=== PATIENT | male | born 1960 | race Caucasian/White ===

== ENCOUNTER 2018-06-23 14:32 | Outpatient (CLI) | payer OTHER | END 2018-06-23 14:33 | disposition home or self-care (01) | LOC: SC 14:32 | PROVIDERS: ATTEND Internal Medicine Pulmonary Disease | DX: G47.33 Obstructive sleep apnea (adult) (pediatric) (principal); E66.9 Obesity, unspecified; Z68.33 Body mass index [BMI] 33.0-33.9, adult | CPT/HCPCS: 99203; 99212 ==

== ENCOUNTER 2018-07-11 20:34 | Outpatient (CLI) | payer OTHER | END 2018-07-11 20:35 | disposition home or self-care (01) | LOC: SC 20:34 | PROVIDERS: ATTEND Internal Medicine Pulmonary Disease | DX: G47.33 Obstructive sleep apnea (adult) (pediatric) (principal) | CPT/HCPCS: 95811 ==

== ENCOUNTER 2018-07-23 13:16 | Outpatient (CLI) | payer OTHER | END 2018-07-23 13:17 | disposition home or self-care (01) | LOC: SC 13:16 | PROVIDERS: ATTEND Nurse Practitioner Family | DX: G47.33 Obstructive sleep apnea (adult) (pediatric) (principal) | CPT/HCPCS: 99212; 99214 ==

== ENCOUNTER 2018-08-07 17:48 | Outpatient (CLI) | payer OTHER ==
--- NOTE | 2018-08-08 12:29 | Ultrasound Report ---
Reason: ENCOUNTER FOR SCREENIG FOR CARDIOVASC,PAIN IN LEFT Procedure Date: 08/07/2018 Accession Number: [id number] / [id number] Procedure: US - Aorta Screening CPT Code: FULL RESULT: EXAM: AORTIC DOPPLER ULTRASOUND EXAM DATE: 08/07/2018 06:38 PM. CLINICAL HISTORY: Encounter for screening for cardiovascular, pain in left. COMPARISON: None. TECHNIQUE: Real-time sonographic imaging of retroperitoneal vascular structures, including color-flow, Doppler flow and spectral analysis was performed by the human resource consultant. Multiple education courses sales representative static images were saved for review. FINDINGS: Aorta: The abdominal aorta was adequately visualized. No evidence for abdominal aortic aneurysm. Aorta: Proxima: Sagittal AP 2.1 cm. Mid: Transverse 2.0 x 2.2 cm. Distal: Transverse 1.9 x 1.9 cm. Caliber: WNL: Yes. Plaque visualized: No. Iliacs: Right Iliac: Transverse 1.0 x 1.1 cm. Left Iliac: Transverse 1.1 x 1.1 cm. Iliac Vessels: The visualized proximal common iliac arteries are normal in caliber. Other: None. IMPRESSION: No aortic aneurysm. RAD[facility]
--- NOTE | 2018-08-10 08:44 | XRAY Report ---
Reason: ENCOUNTER FOR SCREENIG FOR CARDIOVASC,PAIN IN LEFT Procedure Date: 08/07/2018 Accession Number: [id number] / [id number] Procedure: XR - Hips 2V BILAT CPT Code: FULL RESULT: EXAM: BILATERAL HIP RADIOGRAPHY EXAM DATE: 08/07/2018 06:48 PM. CLINICAL HISTORY: ENCOUNTER FOR SCREENING FOR CARDIOVASC,PAIN IN LEFT. COMPARISON: None. TECHNIQUE: 2 views each. FINDINGS: Bones: Normal. No fractures or bone lesion. Right Hip: Mild joint space narrowing subchondral sclerosis Left Hip: Osteophyte femoral head. Mild to moderate joint space narrowing with subchondral sclerosis. Soft Tissues: Normal. No soft tissue swelling. IMPRESSION: Left greater than right DJD RADIA
== END 2018-08-07 17:49 | disposition home or self-care (01) ==
LOC: DI 17:48
PROVIDERS: ATTEND Registered Nurse
DX: M16.0 Bilateral primary osteoarthritis of hip (principal); Z13.6 Encounter for screening for cardiovascular disorders
CPT/HCPCS: 73521; 76706

== ENCOUNTER 2018-09-16 15:02 | Outpatient (CLI) | payer OTHER | END 2018-09-16 15:03 | disposition home or self-care (01) | LOC: SC 15:02 | PROVIDERS: ATTEND Nurse Practitioner Family | DX: G47.33 Obstructive sleep apnea (adult) (pediatric) (principal) | CPT/HCPCS: 99212; 99214 ==

== ENCOUNTER 2021-05-16 09:43 | Outpatient (CLI) | payer OTHER ==
--- NOTE | 2021-05-16 16:10 | XRAY Report ---
PROCEDURE: Ribs w/PA Chest LT INDICATIONS: RIB PAIN TECHNIQUE: 3 views of the left ribs were acquired, along with a single view chest. COMPARISON: None FINDINGS: Surgical changes and devices: None. Bones and chest wall: Nondisplaced fractures of the left 10th and 11th ribs. No suspicious bony lesio ns. Overlying soft tissues appear unremarkable. Lungs and pleura: No pleural effusions or pneumothorax. Lungs appear clear. Mediastinum: Mediastinal contours appear normal. Heart size is normal. IMPRESSION: 1. Left 10th and 11th rib fractures. 2. No pneumothorax or other acute pulmonary abnormality. Reviewed by: Stanley Cheung on 05/16/2021 4:09 PM PST Approved by: Stanley Cheung on 05/16/2021 4:09 PM [facility] Station ID: [id number]
== END 2021-05-16 09:44 | disposition home or self-care (01) ==
LOC: DI.S 09:43
PROVIDERS: ATTEND Physician Assistant
DX: S22.42XA Multiple fractures of ribs, left side, initial encounter for closed fracture (principal)

== ENCOUNTER 2021-06-19 14:42 | Outpatient (CLI) | payer OTHER ==
--- NOTE | 2021-06-19 17:22 | XRAY Report ---
PROCEDURE: Cervical Spine 4 View INDICATIONS: NECK PAIN TECHNIQUE: 4 view(s) of the cervical spine were acquired. COMPARISON: None. FINDINGS: Bones: No fractures or dislocations to the T1 level. There is 5 mm of C3 on C4 retrolisthesis. The l ateral masses of C1 appear intact on the odontoid view. No suspicious bony lesions. Severe C3-C4, C 4 and C5 to C5-C6, C6-7 C7 and C7-T1 degenerative disc disease. Mild facet hypertrophy noted througho ut the cervical spine. Moderate bilateral C3 3-C4, C4-C5 and C5-C6 uncovertebral hypertrophy. Soft tissues: No prevertebral soft tissue swelling. IMPRESSION: 1. Multilevel degenerative disc disease. 2. Multilevel facet arthropathy. 3. No fracture. No acute osseous lesion. If there is continued clinical concern for pathology, then M RI should be considered for further evaluation. Reviewed by: Maria Del Rosario Valdivia MD, PhD on 06/19/2021 5:20 PM PDT Approved by: Maria Del Rosario Valdivia MD, PhD on 06/19/2021 5:20 PM PDT Station ID: [id number]
--- NOTE | 2021-06-19 17:24 | XRAY Report ---
PROCEDURE: Thoracic Spine 2 View INDICATIONS: NECK PAIN TECHNIQUE: 2 views of the thoracic spine were acquired. COMPARISON: None. FINDINGS: Bones: Upper thoracic spine is poorly visualized in the lateral view. No fractures or dislocations. No suspicious bony lesions. 12 pairs of ribs are noted, and appear intact where visualized. Moderat e degenerative changes noted throughout the thoracic spine. Mild facet hypertrophy noted throughout t he thoracic spine. Soft tissues: No paravertebral stripe thickening. IMPRESSION: 1. Multilevel degenerative disc disease. 2. Multilevel facet arthropathy. 3. No fracture. No acute osseous lesion. If there is continued clinical concern for pathology, then M RI should be considered for further evaluation. Reviewed by: Maria Del Rosario Valdivia MD, PhD on 06/19/2021 5:22 PM PDT Approved by: Maria Del Rosario Valdivia MD, PhD on 06/19/2021 5:22 PM PDT Station ID: [id number]
--- NOTE | 2021-06-19 19:47 | XRAY Report ---
PROCEDURE: Shoulder 3 View BILAT INDICATIONS: BILATERAL SHOULDER JOINT PAIN TECHNIQUE: 3 views of each shoulder were acquired. COMPARISON: None. FINDINGS: Bones: No acute fractures or dislocations. No suspicious bony lesions. Visualized ribs appear inta ct. Moderate degenerative changes are seen in the acromioclavicular joints bilaterally. Mild bilatera l glenohumeral osteoarthrosis is also seen. Soft tissues: No suspicious soft tissue calcifications. IMPRESSION: Moderate bilateral acromioclavicular osteoarthrosis and mild bilateral glenohumeral oste oarthrosis. No acute osseous abnormality. If symptoms persist or there is continued clinical concern, further evaluation with MRI or CT may be helpful. Reviewed by: Luis M Barrios MD on 06/19/2021 7:45 PM PDT Approved by: Luis M Barrios MD on 06/19/2021 7:45 PM PDT Station ID: [id number]
== END 2021-06-19 14:43 | disposition home or self-care (01) ==
LOC: DI.S 14:42
PROVIDERS: ATTEND Nurse Practitioner Family
DX: M50.31 Other cervical disc degeneration, high cervical region (principal); M47.812 Spondylosis without myelopathy or radiculopathy, cervical region; M51.34 Other intervertebral disc degeneration, thoracic region; M47.814 Spondylosis without myelopathy or radiculopathy, thoracic region; M19.011 Primary osteoarthritis, right shoulder; M19.012 Primary osteoarthritis, left shoulder

== ENCOUNTER 2023-06-16 08:50 | Outpatient (CLI) | payer OTHER ==
--- NOTE | 2023-06-16 09:49 | XRAY Report ---
PROCEDURE: Chest 2V INDICATIONS: DYSPNEA ON EXERTION TECHNIQUE: 2 views of the chest were acquired. COMPARISON: X-ray 05/16/2021, CT 12/18/2014. FINDINGS: Surgical changes and devices: ACDF of the lower cervical spine incompletely visualized. Lungs and pleura: No pleural effusions or pneumothorax. Lungs are clear. Mediastinum: Mediastinal contours appear normal. Heart size is normal. Bones and chest wall: No suspicious bony lesions. Overlying soft tissues appear unremarkable. IMPRESSION: No acute cardiopulmonary process. Reviewed by: Bhargav Arreaga MD on 06/16/2023 9:47 AM PDT Approved by: Bhargav Arreaga MD on 06/16/2023 9:47 AM PDT Station ID: [id number]
[2023-06-16 14:40] LABS: BASOPHILS # (AUTO) 0.1 10^3/uL (0.0-0.1); BASOPHILS % (AUTO) 1.2 %; EOSINOPHILS # (AUTO) 0.3 10^3/uL (0.0-0.7); EOSINOPHILS % (AUTO) 5.1 %; HCT - HEMATOCRIT 46.8 % (42.0-52.0); HGB - HEMOGLOBIN 14.8 g/dL (14.0-18.0); LYMPHOCYTES # (AUTO) 2.6 10^3/uL (1.5-3.5); LYMPHOCYTES % (AUTO) 38.6 %; MEAN CORPUSCULAR HEMOGLOBIN 29.5 pg (27.0-31.0); MEAN CORPUSCULAR HGB CONC 31.6 g/dL (32.0-36.0); MEAN CORPUSCULAR VOLUME 93.2 fL (80.0-94.0); MEAN PLATELET VOLUME 12.4 fL (7.4-11.4); MONOCYTES # (AUTO) 0.7 10^3/uL (0.0-1.0); NEUTROPHILS % (AUTO) 44.8 %; PLT - PLATELET COUNT 197 10^3/uL (130-450); RED BLOOD COUNT 5.02 10^6/uL (4.70-6.10); RED CELL DISTRIBUTION WIDTH 13.8 % (12.0-15.0); WHITE BLOOD COUNT 6.6 x10^3/uL (4.8-10.8)
[2023-06-16 14:54] LABS: TROPONIN I HIGH SENSITIVITY 5.6 ng/L (2.3-19.7)
[2023-06-16 15:00] LABS: ALBUMIN 4.3 g/dL (3.2-5.5); ALBUMIN/GLOBULIN RATIO 1.4 (1.0-2.2); BILIRUBIN,TOTAL 0.5 mg/dL (0.2-1.0); CALCIUM 10.1 mg/dL (8.5-10.3); CREATININE 0.7 mg/dL (0.6-1.3); POTASSIUM 4.5 mmol/L (3.5-4.5); TOTAL PROTEIN 7.3 g/dL (6.4-8.9)
== END 2023-06-16 08:51 | disposition home or self-care (01) ==
LOC: DI.S 08:50
PROVIDERS: ATTEND Registered Nurse
DX: R07.89 Other chest pain (principal); R00.1 Bradycardia, unspecified; R60.0 Localized edema; Z86.718 Personal history of other venous thrombosis and embolism
CPT/HCPCS: 36415; 80053; 84484; 85025

== ENCOUNTER 2023-06-17 21:01 | Outpatient (CLI) | payer OTHER ==
--- NOTE | 2023-06-17 22:35 | Ultrasound Report ---
PROCEDURE: Duplex Ext Veins Left INDICATIONS: HST OF DVT, LOWER EXT EDEMA TECHNIQUE: Real-time imaging, as well as color and pulse Doppler interrogation, were performed of the lower extr emity deep veins from the inguinal ligament to the popliteal fossa. Attempted visualization of the ca lf veins was performed. COMPARISON: Duplex ultrasound left lower extremity, 04/19/2015. FINDINGS: The deep veins are normally compressible, and free of intraluminal thrombus. Color and pu lse Doppler demonstrate normal phasic intraluminal flow. There is normal augmentation response to di stal compression maneuver. IMPRESSION: No deep venous thrombosis of the visualized lower extremity. Reviewed by: Noah Lopez MD on 06/17/2023 10:34 PM PDT Approved by: Noah Lopez MD on 06/17/2023 10:34 PM PDT Station ID: [id number]
== END 2023-06-17 21:02 | disposition home or self-care (01) ==
LOC: DI 21:01
PROVIDERS: ATTEND Registered Nurse
DX: R60.0 Localized edema (principal); R06.09 Other forms of dyspnea; R00.1 Bradycardia, unspecified; R07.89 Other chest pain; Z86.718 Personal history of other venous thrombosis and embolism